=== PATIENT | male | born 1965 | race Asian ===

== ENCOUNTER 2021-05-02 07:10 | Day surgery (SDC) | payer OTHER, SELFPAY ==
[~2021-05-02] VITALS: Ht 170.2 cm; Wt 72.6 kg
[2021-05-02] MEDS ORDERED: fentaNYL citrate 0.05 MG/ML VIAL ONE (08:09)
[2021-05-02] MEDS ORDERED: MIDAZOLAM 5 MG/5 ML VIAL ONE (08:09)
[2021-05-02] MEDS ORDERED: LIDOCAINE 2% 100 MG/5 ML UJET TP ONE (08:10)
[2021-05-02] MEDS ORDERED: fentaNYL citrate 0.05 MG/ML VIAL IVP ONE (11:50)
[2021-05-02] MEDS ORDERED: MIDAZOLAM 2 MG/2 ML VIAL IVP ONE (11:50)
== END 2021-05-02 10:10 | disposition home or self-care (01) ==
LOC: MDS 07:10 → MMU 07:11 → MDS 10:10
PROVIDERS: ATTEND Internal Medicine Gastroenterology
DX: Z12.11 Encounter for screening for malignant neoplasm of colon (principal); K63.5 Polyp of colon; K57.30 Diverticulosis of large intestine without perforation or abscess without bleeding; Z86.010 Personal history of colon polyps; I10 Essential (primary) hypertension; E11.9 Type 2 diabetes mellitus without complications; I25.10 Atherosclerotic heart disease of native coronary artery without angina pectoris; Z95.5 Presence of coronary angioplasty implant and graft; Z79.899 Other long term (current) drug therapy; Z20.822 Contact with and (suspected) exposure to COVID-19
CPT/HCPCS: 45380; 45385; 82948; 87426; J2250; J3010; 88305